=== PATIENT | female | born 1945 | race Caucasian/White ===

== ENCOUNTER 2018-11-01 23:33 | Emergency (ER) | payer MEDICARE, MEDICAID ==
[2018-11-01] MEDS ORDERED: Nitroglycerin 0.4 MG Tab.SL SL ONE (23:42)
[2018-11-02] MEDS ORDERED: Morphine 2 MG/ML Syringe IVPUSH ONE (00:13)
[2018-11-02] MEDS ORDERED: Heparin Sodium 5,000 Units/ML Vial IVPUSH ONE (00:20)
[2018-11-02] MEDS ORDERED: Heparin Sodium/0.45% NaCl 25,000 UNITS/500 ML BAG IV SCH (00:30)
[2018-11-02] MEDS ORDERED: Nitroglycerin/D5W 25 MG/250 ML BOTTLE IV SCH (00:45)
[2018-11-02] MEDS ORDERED: Clopidogrel 75 MG Tab PO ONE (01:25)
--- NOTE | 2018-11-02 02:07 | EDM.PDOC ---
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 No improvement. Denies radiation, of pain, no nausea or vomiting, denied sweating. Has had recent cold sx past 2 weeks. Denies previous ME. Had ablation for tachy arrhythmia in July. Remote hx blood clot in leg with at age 16/ Mid-Sternal Chest Pain Score (Numeric/FACES): 8 - Related Data Allergies Allergy/AdvReac Type Severity Reaction Status Date / Time codeine Allergy Nausea Verified 07/24/14 05:07 gatifloxacin [Gatifloxacin] Allergy Cannot Verified 07/24/14 05:07 Remember Iodinated Contrast- Oral and Allergy Rash Verified 07/24/14 05:07 IV Dye [Iodinated Contrast Media - IV Dye] Penicillins Allergy Cannot Verified 07/24/14 05:07 Remember propoxyphene AdvReac Nausea Verified 07/24/14 05:07 Home Meds: Home Meds Allopurinol 300 mg PO DAILY 06/13/14 [History] Aspirin [Mini Chewable] 81 mg PO DAILY 06/13/14 [History] Atenolol 100 mg PO BID 06/13/14 [History] Ca Carbonate/Vitamin D3/Vit K [Calcium + D Soft Chewable Tab] 1 tab PO DAILY [History] Clorazepate [Clorazepate Dipotassium] 7.5 mg PO BEDTIME 06/13/14 [History] Ferrous Sulfate [Slow Release Iron] 160 mg PO DAILY 06/13/14 [History] Furosemide 40 mg PO DAILY 06/13/14 [History] Hydroxychloroquine Sulfate [Plaquenil] 200 mg PO BID 06/13/14 [History] Levothyroxine 175 mcg PO ACBRK 06/13/14 [History] NIFEdipine [Nifedical XL] 60 mg PO DAILY 06/13/14 [History] Rosuvastatin Calcium [Crestor] 10 mg PO BEDTIME 06/13/14 [History] Triamcinolone Acetonide [Triamcinolone Acetonide 0.1% Crm] 15 gm .XX DAILY 06/13 [History] Valsartan [Diovan] 160 mg PO DAILY 06/13/14 [History] rOPINIRole [Requip XL] 2 mg PO DAILY 06/13/14 [History] traMADol [Ultram] 50 mg PO Q8HR PRN 06/13/14 [History] Lidocaine 5% [Lidoderm 5%] 1 patch TRDERM DAILY PRN 07/24/14 [History] Polyethylene Glycol 3350 [MiraLAX] 1 scoop PO DAILY 07/24/14 [History] Past Medical History Cardiovascular History: Reports: High Cholesterol, Hypertension, Other (See Below) Other Cardiovascular History: Paroxsysmal atrial tachycardia 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) Other LOAN APPROVER History: pelvic relaxation disorder Musculoskeletal History: Reports: Fibromyalgia, RA Neurological History: Reports: Other (See Below) Other Neuro History: restless leg syndrome Endocrine/Metabolic History: Reports: Diabetes, Type II Hematologic History: Reports: Anemia Immunologic History: Reports: Other (See Below) Social & Family History - Family History Family Medical History: Noncontributory - Tobacco Use Smoking Status *Q: Former Smoker Used Tobacco, but Quit: Yes Month/Year Tobacco Last Used: 1993 - Caffeine Use Caffeine Use: Reports: Coffee - Recreational Drug Use Recreational Drug Use: No ED ROS GENERAL - Review of Systems Review Of Systems: See Below Constitutional: Denies: Diaphoresis HEENT: Reports: No Symptoms Respiratory: Reports: Cough. Denies: Wheezing Cardiovascular: Reports: No Symptoms, Edema (no change). Denies: Lightheadedness, Orthopnea, Palpitations, Syncope GI/Abdominal: Reports: No Symptoms : Reports: No Symptoms Musculoskeletal: Reports: Joint Pain (generalized arthritic pain) Skin: Reports: No Symptoms Neurological: Reports: No Symptoms Psychiatric: Reports: Anxiety ED EXAM, GENERAL - Physical Exam Exam: See Below Exam Limited By: Altered Mental Status General Appearance: Alert, Anxious, Mild Distress Eye Exam: Bilateral Eye: EOMI Ears: Normal External Exam, Normal TMs Nose: Normal Inspection Throat/Mouth: Normal Inspection Head: Atraumatic, Normocephalic, Facial Tenderness Neck: Normal Inspection Respiratory/Chest: No Respiratory Distress, Lungs Clear, Normal Breath Sounds. No: Decreased Breath Sounds, Crackles, Rales, Rhonchi Cardiovascular: Normal Peripheral Pulses, Regular Rate, Rhythm, No Murmur, Other (trace) GI/Abdominal: Normal Bowel Sounds, Soft, Non-Tender Extremities: Normal Inspection, Normal Range of Motion Neurological: Alert, Oriented, Normal Cognition, No Motor/Sensory Deficits Psychiatric: Anxious Skin Exam: Warm, Dry Course - Vital Signs Last Recorded V/S: Last Vital Signs Temp 97.9 F 11/02/18 00:03 Pulse 104 H 11/02/18 00:03 Resp 18 11/02/18 00:03 BP 145/73 H 11/02/18 00:03 Pulse Ox 100 11/02/18 00:03 - Orders/Labs/Meds Orders: Active Orders 24 hr Category Date Time Status EKG Documentation Completion [RC] URGENT Care 11/01/18 23:42 Active Labs: Laboratory Tests 11/01/18 11/01/18 11/01/18 Range/Units 23:43 23:43 23:43 WBC 9.7 (5.0-10.0) 10^3/uL RBC 3.49 L (4.2-5.4) 10^6/uL Hgb 10.9 L (12.0-16.0) g/dL Hct 32.5 L (37.0-47.0) % MCV 93.1 (80-100) fL MCH 31.2 (27.0-34.0) pg MCHC 33.5 (33.0-35.0) g/dL Plt Count 196 (150-450) 10^3/uL Neut % (Auto) 57.3 (42.2-75.2) % Lymph % (Auto) 28.4 (20.5-50.1) % [place] % (Auto) 11.1 H (2-8) % Eos % (Auto) 2.7 (1.0-3.0) % Baso % (Auto) 0.5 (0.0-1.0) % PT 10.0 (9.0-12.0) SEC INR 1.0 (0.9-1.2) APTT (22.0-34.0) SEC D-Dimer, Quantitative 1300 H (0-400) ng/mL Sodium 136 (135-145) mmol/L Potassium 4.0 (3.6-5.0) mmol/L Chloride 103 (101-111) mmol/L Carbon Dioxide 21.0 (21.0-31.0) mmol/L Anion Gap 16.0 BUN 34 H D (7-18) mg/dL Creatinine 1.9 H (0.6-1.3) mg/dL Est Cr Clr Drug Dosing 18.38 mL/min Estimated GFR (MDRD) 26 BUN/Creatinine Ratio 17.89 Glucose 158 H (74-105) mg/dL Calcium 9.7 (8.4-10.2) mg/dl Magnesium 1.7 L (1.8-2.5) mg/dL Total Bilirubin 0.6 (0.2-1.0) mg/dL AST 31 (10-42) IU/L ALT 24 (10-60) IU/L Alkaline Phosphatase 48 (42-121) IU/L Creatine Kinase 146 (26-174) IU/L Troponin I 0.10 H* (0.00-0.02) ng/ml Total Protein 6.7 (6.7-8.2) g/dl Albumin 4.4 (3.2-5.5) g/dl Globulin 2.3 Albumin/Globulin Ratio 1.91 11/01/18 Range/Units 23:43 WBC (5.0-10.0) 10^3/uL RBC (4.2-5.4) 10^6/uL Hgb (12.0-16.0) g/dL Hct (37.0-47.0) % MCV (80-100) fL MCH (27.0-34.0) pg MCHC (33.0-35.0) g/dL Plt Count (150-450) 10^3/uL Neut % (Auto) (42.2-75.2) % Lymph % (Auto) (20.5-50.1) % [place] % (Auto) (2-8) % Eos % (Auto) (1.0-3.0) % Baso % (Auto) (0.0-1.0) % PT (9.0-12.0) SEC INR (0.9-1.2) APTT 20.5 L (22.0-34.0) SEC D-Dimer, Quantitative (0-400) ng/mL Sodium (135-145) mmol/L Potassium (3.6-5.0) mmol/L Chloride (101-111) mmol/L Carbon Dioxide (21.0-31.0) mmol/L Anion Gap BUN (7-18) mg/dL Creatinine (0.6-1.3) mg/dL Est Cr Clr Drug Dosing mL/min Estimated GFR (MDRD) BUN/Creatinine Ratio Glucose (74-105) mg/dL Calcium (8.4-10.2) mg/dl Magnesium (1.8-2.5) mg/dL Total Bilirubin (0.2-1.0) mg/dL AST (10-42) IU/L ALT (10-60) IU/L Alkaline Phosphatase (42-121) IU/L Creatine Kinase (26-174) IU/L Troponin I (0.00-0.02) ng/ml Total Protein (6.7-8.2) g/dl Albumin (3.2-5.5) g/dl Globulin Albumin/Globulin Ratio Meds: Medications Discontinued Medications Generic Name Dose Route Start Last Admin Trade Name Freq PRN Reason Stop Dose Admin Clopidogrel Bisulfate 300 mg 11/02/18 01:25 11/02/18 01:34 Plavix PO 11/02/18 01:26 300 mg ONETIME ONE Administration Heparin Sodium (Porcine) 4,000 units 11/02/18 00:20 11/02/18 00:39 Heparin Sodium IVPUSH 11/02/18 00:21 4,000 units .BOLUS ONE Administration Heparin Sodium/Sodium Chloride 25,000 units in 500 mls @ 17.418 mls/hr 00:30 11/02/18 00:40 Heparin 25,000 Units In 1/2 Ns 500 Ml IV 12 units/kg/hr TITRATE LEANDRA 17.418 mls/hr Administration Protocol 12 UNITS/KG/HR Nitroglycerin/Dextrose 25 mg in 250 mls @ 6 mls/hr 11/02/18 00:45 11/02/18 00 :48 Nitroglycerin 25 Mg/D5w 250 Ml IV 10 mcg/min TITRATE LEANDRA 6 mls/hr Administration Protocol 10 MCG/MIN Morphine Sulfate 2 mg 11/02/18 00:13 11/02/18 00:18 Morphine IVPUSH 11/02/18 00:14 2 mg ONETIME ONE Administration Nitroglycerin 0.4 mg 11/01/18 23:42 11/01/18 23:52 Nitrostat SL 11/01/18 23:43 0.4 mg ONETIME ONE Administration - Radiology Interpretation Free Text/Narrative:: CXR: Name: JUAN ALCALA Age: 73Years F Date: 11/01/2018 SSN: -- : 1945 Study: XR CHEST 1 VIEW Requesting Physician: INES VICTOR Images: 1 Addl Studies: Provided Clinical History: Contrast: Contrast Medium: Contrast Amount: Contrast Method: CONFIDENTIALITY STATEMENT This report is intended only for use by the referring physician, and only in accordance with law. If you received this in error, call [phone]. Page 1 of 1 EXAM: XR Chest, 1 View EXAM DATE/TIME: 11/01/2018 11:47 PM CLINICAL HISTORY: 73 years old, female; Pain; Chest pain; Type not specified TECHNIQUE: XR of the chest, 1 view. COMPARISON: CR Chest 2V 08/16/2016 12:39 PM FINDINGS: Lungs: Clear lungs. Pleural space: No pneumothorax. No sizable pleural effusion. Heart/Mediastinum: No cardiomegaly. Bones/joints: Unremarkable. IMPRESSION: Clear lungs. Thank you for allowing us to participate in the care of your patient. Dictated and Authenticated by: Milton Edmondson MD 11/02/2018 12:36 AM Central Time ([place] & [place]) - Re-Assessments/Exams Free Text/Narrative Re-Assessment/Exam: 11/02/18 06:35 Dr Emili Rebollar accepting for further evaluation. Tx via [facility]. Nitro and heparin infusing. VSS. Anxious Departure - Departure Time of Disposition: 02:05 Disposition: DC/Tfer to Acute Hospital 02 Reason for Transfer *Q: Other Condition: Undetermined Clinical Impression: Acute myocardial infarction Qualifiers: Myocardial infarction type: non-ST elevation myocardial infarction Qualified Code(s): I21.4 - Non-ST elevation (NSTEMI) myocardial infarction Referrals: PCP,None [Primary Care Provider] - Forms: ED Department Discharge - My Orders Last 24 Hours: My Active Orders 11/01/18 23:42 EKG Documentation Completion [RC] URGENT - Assessment/Plan Last 24 Hours: My Active Orders 11/01/18 23:42 EKG Documentation Completion [RC] URGENT
== END 2018-11-02 02:07 ==
LOC: DL.ED 23:33
DX: I21.4 Non-ST elevation (NSTEMI) myocardial infarction (principal); E78.00 Pure hypercholesterolemia, unspecified; I10 Essential (primary) hypertension; E11.9 Type 2 diabetes mellitus without complications; Z88.5 Allergy status to narcotic agent; Z88.8 Allergy status to other drugs, medicaments and biological substances; Z88.0 Allergy status to penicillin; Z79.82 Long term (current) use of aspirin; Z79.899 Other long term (current) drug therapy; Z87.891 Personal history of nicotine dependence
CPT/HCPCS: 36415; 71045; 80053; 82550; 83735; 84484; 85025; 85379; 85610; 85730; 93005; 96365; 96368; 96375; 99285; A9270; J1644; J2270; J3490

== ENCOUNTER 2018-11-11 18:50 | Emergency (ER) | payer MEDICARE, MEDICAID ==
--- NOTE | 2018-11-11 19:04 | EDM.PDOC ---
ED HPI GENERAL MEDICAL PROBLEM - General Chief Complaint: Respiratory Problem Stated Complaint: PNEUMONIA Time Seen by Provider: 11/11/18 19:03 Source of Information: Reports: Patient History Limitations: Reports: No Limitations - History of Present Illness INITIAL COMMENTS - FREE TEXT/NARRATIVE: c/o cough SOB since coming home from 5 days ago for stent placement from [place]. - Related Data Allergies Allergy/AdvReac Type Severity Reaction Status Date / Time codeine Allergy Nausea Verified 07/24/14 05:07 gatifloxacin [Gatifloxacin] Allergy Cannot Verified 07/24/14 05:07 Remember Iodinated Contrast- Oral and Allergy Rash Verified 07/24/14 05:07 IV Dye [Iodinated Contrast Media - IV Dye] lorazepam Allergy Nervousness Verified 11/11/18 18:55 Penicillins Allergy Cannot Verified 07/24/14 05:07 Remember tramadol Allergy Hallucinati Verified 11/11/18 18:55 ons propoxyphene AdvReac Nausea Verified 07/24/14 05:07 Home Meds: Home Meds Aspirin [Mini Chewable] 81 mg PO DAILY 06/13/14 [History] Ca Carbonate/Vitamin D3/Vit K [Calcium + D Soft Chewable Tab] 1 tab PO DAILY [History] Clorazepate [Clorazepate Dipotassium] 7.5 mg PO BEDTIME 06/13/14 [History] Hydroxychloroquine Sulfate [Plaquenil] 200 mg PO BID 06/13/14 [History] Levothyroxine 125 mcg PO ACBRK 06/13/14 [History] NIFEdipine [Nifedical XL] 90 mg PO DAILY 06/13/14 [History] Lidocaine 5% [Lidoderm 5%] 1 patch TRDERM DAILY PRN 07/24/14 [History] Polyethylene Glycol 3350 [MiraLAX] 1 scoop PO DAILY PRN 07/24/14 [History] Acetaminophen/HYDROcodone [[place] 325-5 MG] 1 tab PO BID PRN 11/11/18 [History] Clopidogrel [Plavix] 75 mg PO DAILY 11/11/18 [History] Ezetimibe [Zetia] 10 mg PO DAILY 11/11/18 [History] Magnesium 250 mg PO DAILY 11/11/18 [History] Metoprolol Tartrate 200 mg PO BID 11/11/18 [History] Sennosides [Senna] 8.6 mg PO DAILY 11/11/18 [History] Tocilizumab [Actemra] 1 dose IV ASDIRECTED 11/11/18 [History] atorvaSTATin [Lipitor] 20 mg PO BEDTIME 11/11/18 [History] cloNIDine [Catapres] 0.1 mg PO BID 11/11/18 [History] Past Medical History Cardiovascular History: Reports: High Cholesterol, Hypertension, Other (See Below) Other Cardiovascular History: Paroxsysmal atrial tachycardia 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 ED EXAM, GENERAL - Physical Exam Exam: See Below Exam Limited By: No Limitations General Appearance: Alert, WD/WN, Mild Distress, Moderate Distress, Other ( congestion cough) Ears: Hearing Grossly Normal Throat/Mouth: Normal Voice, No Airway Compromise Head: Atraumatic Neck: Non-Tender, Full Range of Motion Respiratory/Chest: No Respiratory Distress, No Accessory Muscle Use, Decreased Breath Sounds, Crackles, Rales, Rhonchi Cardiovascular: Regular Rate, Rhythm GI/Abdominal: Soft, Non-Tender Neurological: Alert, Oriented, Normal Cognition, Normal Gait, No Motor/Sensory Deficits Psychiatric: Normal Affect, Normal Mood Skin Exam: Warm, Dry, Normal Color Lymphatic: No Adenopathy Course - Vital Signs Last Recorded V/S: Last Vital Signs Temp 36.3 C 11/11/18 20:17 Pulse 65 11/11/18 20:17 Resp 18 11/11/18 20:17 BP 148/62 H 11/11/18 20:17 Pulse Ox 87 L 11/11/18 19:02 - Orders/Labs/Meds Orders: Active Orders 24 hr Category Date Time Status EKG Documentation Completion [RC] URGENT Care 11/11/18 18:55 Active RT Aerosol Therapy [RC] ASDIRECTED Care 11/11/18 19:05 Active Chest 1V Frontal [CR] Urgent Exams 11/11/18 19:01 Taken CULTURE BLOOD [BC] Stat Lab 11/11/18 19:10 Received CULTURE BLOOD [BC] Stat Lab 11/11/18 20:27 Ordered Vancomycin 1 gm Med 11/11/18 20:28 Active Sodium Chloride 0.9% [Normal Saline] 250 ml IV ONETIME Medication Orders Vancomycin HCl 1 gm/ Sodium (Chloride) 250 mls @ 167 mls/hr IV ONETIME ONE Stop: 11/11/18 21:57 Labs: Laboratory Tests 11/11/18 11/11/18 11/11/18 Range/Units 19:10 19:10 19:10 WBC 10.7 H (5.0-10.0) 10^3/uL RBC 3.10 L (4.2-5.4) 10^6/uL Hgb 9.5 L (12.0-16.0) g/dL Hct 28.5 L (37.0-47.0) % MCV 91.9 (80-100) fL MCH 30.6 (27.0-34.0) pg MCHC 33.3 (33.0-35.0) g/dL Plt Count 194 (150-450) 10^3/uL Neut % (Auto) 76.9 H (42.2-75.2) % Lymph % (Auto) 5.6 L (20.5-50.1) % [place] % (Auto) 14.6 H (2-8) % Eos % (Auto) 2.5 (1.0-3.0) % Baso % (Auto) 0.4 (0.0-1.0) % Sodium 134 L (135-145) mmol/L Potassium 3.8 (3.6-5.0) mmol/L Chloride 105 (101-111) mmol/L Carbon Dioxide 19.0 L (21.0-31.0) mmol/L Anion Gap 13.8 BUN 22 H (7-18) mg/dL Creatinine 1.2 (0.6-1.3) mg/dL Est Cr Clr Drug Dosing 29.10 mL/min Estimated GFR (MDRD) 44 BUN/Creatinine Ratio 18.33 Glucose 129 H (74-105) mg/dL Lactic Acid 1.1 (0.5-2.2) mmol/L Calcium 8.9 (8.4-10.2) mg/dl Total Bilirubin 0.6 (0.2-1.0) mg/dL AST 30 (10-42) IU/L ALT 25 (10-60) IU/L Alkaline Phosphatase 48 (42-121) IU/L Troponin I 0.24 H* (0.00-0.02) ng/ml B-Natriuretic Peptide 765 H (0-100) pg/ml Total Protein 6.2 L (6.7-8.2) g/dl Albumin 3.8 (3.2-5.5) g/dl Globulin 2.4 Albumin/Globulin Ratio 1.58 Meds: Medications Generic Name Dose Route Start Last Admin Trade Name Freq PRN Reason Stop Dose Admin Vancomycin HCl 1 gm/ Sodium 250 mls @ 167 mls/hr 11/11/18 20:28 Chloride IV 11/11/18 21:57 ONETIME ONE Discontinued Medications Generic Name Dose Route Start Last Admin Trade Name Freq PRN Reason Stop Dose Admin Albuterol/Ipratropium 3 ml 11/11/18 19:05 11/11/18 19:16 Duoneb 3.0-0.5 Mg/3 Ml NEB 11/11/18 19:06 3 ml ONETIME ONE Administration Methylprednisolone Sodium Succinate 125 mg 11/11/18 19:05 11/11/18 19:16 Solu-Medrol IVPUSH 11/11/18 19:06 125 mg ONETIME ONE Administration - Re-Assessments/Exams Free Text/Narrative Re-Assessment/Exam: 11/11/18 20:30 s/p duoneb + solumed = much better Departure - Departure Time of Disposition: 20:31 Disposition: DC/Tfer to Acute Hospital 02 Condition: Fair Clinical Impression: Pneumonia, Elevated troponin I level, Elevated brain natriuretic peptide (BNP) level, History of heart artery stent - Discharge Information Forms: Interfacility Transfer EMTALA - My Orders Last 24 Hours: My Active Orders 11/11/18 18:55 EKG Documentation Completion [RC] URGENT 11/11/18 19:01 Chest 1V Frontal [CR] Urgent 11/11/18 19:05 RT Aerosol Therapy [RC] ASDIRECTED 11/11/18 19:10 CULTURE BLOOD [BC] Stat 11/11/18 20:27 CULTURE BLOOD [BC] Stat 11/11/18 20:28 Vancomycin 1 gm Sodium Chloride 0.9% [Normal Saline] 250 ml IV ONETIME - Assessment/Plan Last 24 Hours: My Active Orders 11/11/18 18:55 EKG Documentation Completion [RC] URGENT 11/11/18 19:01 Chest 1V Frontal [CR] Urgent 11/11/18 19:05 RT Aerosol Therapy [RC] ASDIRECTED 11/11/18 19:10 CULTURE BLOOD [BC] Stat 11/11/18 20:27 CULTURE BLOOD [BC] Stat 11/11/18 20:28 Vancomycin 1 gm Sodium Chloride 0.9% [Normal Saline] 250 ml IV ONETIME
[2018-11-11] MEDS ORDERED: methylPREDNISolone Sodium Succinate 125 MG/2 ML SDV IVPUSH ONE (19:05)
[2018-11-11] MEDS ORDERED: Albuterol/Ipratropium 3.0-0.5 MG/3 ML Neb Soln NEB ONE (19:05)
[2018-11-11 19:36] LABS: ANION GAP 13.8
== END 2018-11-11 21:10 ==
LOC: DL.ED 18:50
DX: J18.9 Pneumonia, unspecified organism (principal); E78.00 Pure hypercholesterolemia, unspecified; I10 Essential (primary) hypertension; E11.9 Type 2 diabetes mellitus without complications; R79.89 Other specified abnormal findings of blood chemistry; Z95.5 Presence of coronary angioplasty implant and graft; Z88.5 Allergy status to narcotic agent; Z88.1 Allergy status to other antibiotic agents; Z88.0 Allergy status to penicillin; Z79.82 Long term (current) use of aspirin; Z79.899 Other long term (current) drug therapy; Z79.01 Long term (current) use of anticoagulants
CPT/HCPCS: 36415; 71045; 80053; 83605; 83880; 84484; 85025; 87040; 93005; 96365; 96375; 99285; J2930; J3370; J7050; 99284; J7620-GY

== ENCOUNTER 2019-11-12 10:52 | Emergency (ER) | payer MEDICARE, MEDICAID ==
[2019-11-12] MEDS ORDERED: Aspirin 81 MG Tab.Chew PO ONE (11:16)
--- NOTE | 2019-11-12 12:21 | EDM.PDOC ---
ED HPI GENERAL MEDICAL PROBLEM - General Chief Complaint: Chest Pain Stated Complaint: POSSIBLE HEART ATTACK Time Seen by Provider: 11/12/19 11:05 Source of Information: Reports: Patient, Family, RN, Other History Limitations: Reports: No Limitations - History of Present Illness INITIAL COMMENTS - FREE TEXT/NARRATIVE: ED per wheelchair with c/o pain across lower neck and upper neck pain with general body aches x 2 days, Improved today from yesterday. Presented to clinic for check this am, EKG and labs, and cervical spine xray done. while in clinic , Released home and Troponin returned elevatedso called at home and told to go to ED. Patient denies chest pain. Pain only in back, No SOB, cough in am. No nausea or vomiting, No known fever. Hx IA with Stent one year ago. RA, enlarged thyroid per hx. Back Pain Score (Numeric/FACES): 4 - Related Data Allergies Allergy/AdvReac Type Severity Reaction Status Date / Time codeine Allergy Nausea Verified 11/12/19 11:11 gatifloxacin [Gatifloxacin] Allergy Cannot Verified 11/12/19 11:11 Remember Iodinated Contrast Media Allergy Rash Verified 11/12/19 11:11 [Iodinated Contrast Media - IV Dye] lorazepam Allergy Nervousness Verified 11/12/19 11:11 Penicillins Allergy Cannot Verified 11/12/19 11:11 Remember tramadol Allergy Hallucinati Verified 11/12/19 11:11 ons propoxyphene AdvReac Nausea Verified 11/12/19 11:11 Home Meds: Home Meds Aspirin [Mini Chewable] 81 mg PO DAILY 06/13/14 [History] Calcium Carb/Vitamin D3/Vit K1 [Calcium + D Soft Chewable Tab] 1 tab PO DAILY [History] Clorazepate [Clorazepate Dipotassium] 7.5 mg PO BEDTIME 06/13/14 [History] Hydroxychloroquine Sulfate [Plaquenil] 200 mg PO BID 06/13/14 [History] Levothyroxine 125 mcg PO ACBRK 06/13/14 [History] NIFEdipine [Nifedical XL] 60 mg PO DAILY 06/13/14 [History] Lidocaine 5% [Lidoderm 5%] 1 patch TRDERM DAILY PRN 07/24/14 [History] Acetaminophen/HYDROcodone [[place] 325-5 MG] 1 tab PO BID PRN 11/11/18 [History] Clopidogrel [Plavix] 75 mg PO DAILY 11/11/18 [History] Ezetimibe [Zetia] 10 mg PO DAILY 11/11/18 [History] Metoprolol Tartrate 200 mg PO BID 11/11/18 [History] Sennosides [Senna] 8.6 mg PO DAILY 11/11/18 [History] Tocilizumab [Actemra] 1 dose IV ASDIRECTED 11/11/18 [History] atorvaSTATin [Lipitor] 20 mg PO BEDTIME 11/11/18 [History] cloNIDine [Catapres] 0.1 mg PO BID 11/11/18 [History] Past Medical History HEENT History: Reports: Impaired Vision Cardiovascular History: Reports: High Cholesterol, Hypertension, Other (See Below) Other Cardiovascular History: Paroxsysmal atrial tachycardia Respiratory History: Reports: Bronchitis, Recurrent Gastrointestinal History: Reports: Cholelithiasis Genitourinary History: Reports: Other (See Below) Other Genitourinary History: "Donut" for bladder ONCOLOGIST History: Reports: Other (See Below) Other ONCOLOGIST History: pelvic relaxation disorder Musculoskeletal History: Reports: Fibromyalgia, RA Neurological History: Reports: Other (See Below) Other Neuro History: restless leg syndrome Psychiatric History: Reports: Anxiety Endocrine/Metabolic History: Reports: Diabetes, Type II Hematologic History: Reports: Anemia Immunologic History: Reports: None, Other (See Below) Dermatologic History: Reports: Other (See Below) Other Dermatologic History: skin - Infectious Disease History Infectious Disease History: Reports: C-Difficile, Measles - Past Surgical History HEENT Surgical History: Reports: Cataract Surgery Cardiovascular Surgical History: Reports: Other (See Below) Other Cardiovascular Surgeries/Procedures: Heart ablasion Respiratory Surgical History: Reports: None GI Surgical History: Reports: Cholecystectomy, Colonoscopy Female Surgical History: Reports: None Endocrine Surgical History: Reports: None Neurological Surgical History: Reports: None Musculoskeletal Surgical History: Reports: None Dermatological Surgical History: Reports: Skin Biopsy Social & Family History - Family History Family Medical History: Noncontributory - Tobacco Use Smoking Status *Q: Never Smoker - Caffeine Use Caffeine Use: Reports: Coffee - Recreational Drug Use Recreational Drug Use: No ED ROS GENERAL - Review of Systems Review Of Systems: Comprehensive ROS is negative, except as noted in HPI. ED EXAM, GENERAL - Physical Exam Exam: See Below Exam Limited By: No Limitations General Appearance: Alert, No Apparent Distress (moving upper extremities without limitiation, stiff lower extremities. Talking full sentences ), Anxious Eye Exam: Bilateral Eye: EOMI, PERRL Ears: Normal External Exam, Normal TMs Nose: Normal Inspection Throat/Mouth: Normal Inspection Head: Atraumatic, Normocephalic Neck: Normal Inspection, Tender Lateral. No: Limited Range of Motion, Tender Midline Respiratory/Chest: No Respiratory Distress, Decreased Breath Sounds (scattered crackles to base clear with deep breathing.) Cardiovascular: Normal Peripheral Pulses, Regular Rate, Rhythm GI/Abdominal: Normal Bowel Sounds, Soft, Non-Tender Extremities: No: Pedal Edema, Increased Warmth Neurological: Alert, Oriented, Normal Cognition Psychiatric: Anxious Skin Exam: Warm, Dry, Intact, Normal Color, No Rash Course - Vital Signs Last Recorded V/S: Last Vital Signs Temp 98 F 11/12/19 11:05 Pulse 59 L 11/12/19 11:05 Resp 17 11/12/19 11:05 BP 168/73 H 11/12/19 11:05 Pulse Ox 99 11/12/19 11:05 - Orders/Labs/Meds Labs: Laboratory Tests 11/12/19 11/12/19 11/12/19 Range/Units 11:04 11:04 11:04 D-Dimer, Quantitative 217 (0-400) ng/mL Creatine Kinase 170 (26-174) IU/L CK-MB (CK-2) 6.90 H (0.4-4.7) ng/mL Troponin I 0.15 H* (0.00-0.02) ng/ml C-Reactive Protein < 0.5 (0.0-1.3) mg/dL B-Natriuretic Peptide 118 H (0-100) pg/ml Meds: Medications Discontinued Medications Generic Name Dose Route Start Last Admin Trade Name Freq PRN Reason Stop Dose Admin Aspirin 324 mg 11/12/19 11:16 11/12/19 11:35 Aspirin PO 11/12/19 11:17 324 mg ONETIME ONE Administration Heparin Sodium (Porcine) 4,000 units 11/12/19 12:50 11/12/19 13:02 Heparin Sodium IVPUSH 11/12/19 12:51 4,000 units .BOLUS ONE Administration Protocol Heparin Sodium/Sodium Chloride 25,000 units in 500 mls @ 16.656 mls/hr 12:53 11/12/19 13:03 Heparin 25,000 Units In 1/2 Ns 500 Ml IV 11/13/19 18:54 12 units/kg/hr TITRATE ONE 16.656 mls/hr Administration Protocol 12 UNITS/KG/HR - Re-Assessments/Exams Free Text/Narrative Re-Assessment/Exam: Tx Sanod via [facility]. NSTEMI. Departure - Departure Time of Disposition: 12:23 Disposition: DC/Tfer to Acute Hospital 02 Reason for Transfer *Q: Other Condition: Undetermined Clinical Impression: NSTEMI (non-ST elevated myocardial infarction), Elevated troponin I level, History of heart artery stent Rheumatoid arthritis Qualifiers: Rheumatoid arthritis location: unspecified site Rheumatoid factor presence: unspecified presence Qualified Code(s): M06.9 - Rheumatoid arthritis, unspecified Referrals: PCP,Unobtain [Primary Care Provider] - Forms: ED Department Discharge Sepsis Event Note - Evaluation Sepsis Screening Result: No Definite Risk - Focused Exam Date Exam was Performed: 11/14/19 Time Exam was Performed: 06:22
[2019-11-12] MEDS ORDERED: Heparin Sodium 5,000 Units/ML Vial IVPUSH ONE (12:50)
[2019-11-12] MEDS ORDERED: Heparin Sodium/0.45% NaCl 25,000 UNITS/500 ML BAG IV ONE (12:53)
== END 2019-11-12 13:15 ==
LOC: DL.ED 10:52
DX: I21.4 Non-ST elevation (NSTEMI) myocardial infarction (principal); R79.89 Other specified abnormal findings of blood chemistry; M06.9 Rheumatoid arthritis, unspecified; E78.00 Pure hypercholesterolemia, unspecified; I10 Essential (primary) hypertension; F41.9 Anxiety disorder, unspecified; E11.9 Type 2 diabetes mellitus without complications; I48.0 Paroxysmal atrial fibrillation; Z79.02 Long term (current) use of antithrombotics/antiplatelets; Z79.899 Other long term (current) drug therapy; Z79.82 Long term (current) use of aspirin; Z86.79 Personal history of other diseases of the circulatory system; Z88.0 Allergy status to penicillin; Z88.5 Allergy status to narcotic agent; Z88.8 Allergy status to other drugs, medicaments and biological substances; Z91.041 Radiographic dye allergy status
CPT/HCPCS: 36415; 71045; 71250; 74176; 82550; 82553; 83880; 84484; 85379; 86140; 87804; 93005; 96374; 99284; 99285; A9270; J1644

== ENCOUNTER 2021-10-27 14:14 | Emergency (ER) | payer MEDICARE, MEDICAID ==
[2021-10-27] MEDS ORDERED: Lidocaine 1% 30 ML SDV INFILT ONE (14:24)
== END 2021-10-27 16:10 | disposition home or self-care (01) ==
LOC: DL.ED 14:14
DX: S71.111A Laceration without foreign body, right thigh, initial encounter (principal); S61.215A Laceration without foreign body of left ring finger without damage to nail, initial encounter; E78.00 Pure hypercholesterolemia, unspecified; I10 Essential (primary) hypertension; E11.9 Type 2 diabetes mellitus without complications; Z90.49 Acquired absence of other specified parts of digestive tract; Z88.5 Allergy status to narcotic agent; Z88.8 Allergy status to other drugs, medicaments and biological substances; Z88.0 Allergy status to penicillin; Z79.82 Long term (current) use of aspirin; Z79.899 Other long term (current) drug therapy; W01.0XXA Fall on same level from slipping, tripping and stumbling without subsequent striking against object, initial encounter
CPT/HCPCS: 12004; 99282-25

== ENCOUNTER 2021-12-08 17:35 | Emergency (ER) | payer MEDICARE, MEDICAID | END 2021-12-08 19:07 | disposition home or self-care (01) | LOC: DL.ED 17:35 | DX: S80.01XA Contusion of right knee, initial encounter (principal); M17.11 Unilateral primary osteoarthritis, right knee; E78.00 Pure hypercholesterolemia, unspecified; I10 Essential (primary) hypertension; E11.9 Type 2 diabetes mellitus without complications; Z88.5 Allergy status to narcotic agent; Z88.1 Allergy status to other antibiotic agents; Z88.0 Allergy status to penicillin; Z91.041 Radiographic dye allergy status; Z79.82 Long term (current) use of aspirin; Z79.02 Long term (current) use of antithrombotics/antiplatelets; Z79.899 Other long term (current) drug therapy; W18.30XA Fall on same level, unspecified, initial encounter | CPT/HCPCS: 73562-RT; 99282; 99283-25 ==

== ENCOUNTER 2022-12-18 18:24 | Emergency (ER) | payer MEDICARE, MEDICAID ==
[2022-12-18] MEDS ORDERED: predniSONE 20 MG Tab PO ONE ×2 (18:25→19:48)
[2022-12-18] MEDS ORDERED: predniSONE 20 MG Tab ONE (20:05)
== END 2022-12-18 20:26 | disposition home or self-care (01) ==
LOC: DL.ED 18:24
DX: M25.571 Pain in right ankle and joints of right foot (principal); M25.572 Pain in left ankle and joints of left foot; E78.00 Pure hypercholesterolemia, unspecified; I10 Essential (primary) hypertension; E11.9 Type 2 diabetes mellitus without complications; M06.9 Rheumatoid arthritis, unspecified; Z88.5 Allergy status to narcotic agent; Z88.8 Allergy status to other drugs, medicaments and biological substances; Z91.041 Radiographic dye allergy status; Z88.0 Allergy status to penicillin; Z79.82 Long term (current) use of aspirin; Z79.02 Long term (current) use of antithrombotics/antiplatelets; Z79.899 Other long term (current) drug therapy
CPT/HCPCS: 73600-50; 99283; 99284; J7512

== ENCOUNTER 2023-01-25 16:12 | Inpatient (IN) | payer MEDICARE, MEDICAID ==
[2023-01-25] MEDS ORDERED: hydrALAZINE 20 MG/ML SDV IVPUSH PRN (16:56)
[2023-01-25] MEDS ORDERED: Metoprolol Tartrate 5 MG/5 ML SDV IVPUSH PRN (16:56)
[2023-01-25] MEDS ORDERED: Albuterol/Ipratropium 3.0-0.5 MG/3 ML Neb Soln NEB PRN (16:57)
[2023-01-25] MEDS ORDERED: Acetaminophen/HYDROcodone 325-5 MG Tab PO PRN (16:57)
[2023-01-25] MEDS ORDERED: HYDROmorphone 0.5 MG/0.5 ML Syringe IVPUSH PRN (16:57)
[2023-01-25] MEDS ORDERED: Sodium Chloride 0.9% 10 ML Syringe FLUSH PRN (16:57)
[2023-01-25] MEDS ORDERED: Ondansetron 4 MG/2 ML SDV IVPUSH PRN (16:57)
[2023-01-25] MEDS ORDERED: Magnesium Hydroxide 400 MG/5 ML Susp 30 ML Cup PO PRN (16:57)
[2023-01-25] MEDS ORDERED: Polyethylene Glycol 3350 Powder 17 GM Packet PO PRN (16:57)
[2023-01-25] MEDS ORDERED: Heparin Sodium 5,000 Units/ML Vial IVPUSH ONE (17:00)
[2023-01-25] MEDS: Heparin Sodium/0.45% NaCl 25,000 UNITS/500 ML BAG IV SCH (17:12)
[2023-01-25] MEDS ORDERED: Clopidogrel 75 MG Tab PO ONE (17:40)
[2023-01-25] MEDS ORDERED: Furosemide 100 MG in Sodium Chloride 0.9% 90 ML IV SCH (17:45)
[2023-01-25] MEDS ORDERED: Potassium Chloride 10 MEQ Tab.ER PO ONE (17:46)
[2023-01-25] MEDS ORDERED: Glucagon,Human Recombinant 1 MG Vial IM PRN (19:47)
[2023-01-25] MEDS ORDERED: 50% Dextrose in Water 50 ML Syringe IVPUSH PRN (19:47)
[2023-01-25] MEDS: Albumin 25% 12.5 GM in Premix Bag 1 BAG IV SCH (20:41)
[2023-01-25] MEDS: Sodium Chloride 0.9% 10 ML Syringe FLUSH SCH (20:58)
[2023-01-25] MEDS ORDERED: Non-Formulary Medication 1 Each (Sennosides [Senna] 8.6 MG Tablet) PO PRN (21:07)
[2023-01-25] MEDS: CLORAZEPATE 7.5 MG PO SCH (22:09)
[2023-01-26] MEDS ORDERED: Heparin Sodium 5,000 Units/ML Vial ONE (00:11)
[2023-01-26] MEDS ORDERED: Heparin Sodium 5,000 Units/ML Vial IVPUSH ONE ×2 (00:21→07:33)
[2023-01-26] MEDS: Albumin 25% 12.5 GM in Premix Bag 1 BAG IV SCH ×3 (02:26→14:29)
[2023-01-26] MEDS: Levothyroxine 150 MCG Tab PO SCH (05:29)
[2023-01-26 06:25] LABS: ANION GAP 10.6 mEq/L (7-13)
[2023-01-26] MEDS ORDERED: Albumin 25% 50 ML ONE ×2 (07:39→14:05)
[2023-01-26] MEDS: hydrALAZINE 25 MG Tab PO SCH ×2 (08:09→21:03)
[2023-01-26] MEDS: Metoprolol Tartrate 50 MG Tab PO SCH ×2 (08:10→21:01)
[2023-01-26] MEDS: Ezetimibe 10 MG Tab PO SCH (08:10)
[2023-01-26] MEDS: Potassium Chloride 10 MEQ Tab.ER PO SCH (08:10)
[2023-01-26] MEDS: Hydroxychloroquine 200 MG Tab PO SCH ×2 (08:11→21:04)
[2023-01-26] MEDS: Sodium Chloride 0.9% 10 ML Syringe FLUSH SCH ×2 (08:11→21:05)
[2023-01-26] MEDS: amLODIPine 5 MG Tab PO SCH (08:11)
[2023-01-26] MEDS: Insulin Lispro 100 Units/ML 3 ML Vial SUBCUT SCH ×3 (08:22→17:21)
[2023-01-26] MEDS ORDERED: Aspirin 81 MG Tab.Chew PO SCH (09:00)
[2023-01-26] MEDS ORDERED: Clopidogrel 75 MG Tab PO SCH (09:00)
[2023-01-26] MEDS ORDERED: Magnesium Sulfate/Water 50 ML ONE ×2 (09:10→15:34)
[2023-01-26] MEDS ORDERED: Magnesium Sulfate/Water 2 GM in Premix Bag 1 BAG IV ONE ×2 (09:30→15:30)
[2023-01-26] MEDS: Acetaminophen 325 MG Tab PO PRN (17:50)
[2023-01-26] MEDS ORDERED: Albumin 25% 12.5 GM in Premix Bag 1 BAG IV SCH (20:00)
[2023-01-26 20:59] LABS: ANION GAP 12.2 mEq/L (7-13)
[2023-01-26] MEDS ORDERED: CLORAZEPATE 7.5 MG PO SCH (21:00)
[2023-01-26] MEDS: atorvaSTATin 20 MG Tab PO SCH (21:03)
[2023-01-26] MEDS: CLORAZEPATE 7.5 MG PO SCH (21:15)
[2023-01-26] MEDS: Heparin Sodium/0.45% NaCl 25,000 UNITS/500 ML BAG IV SCH (23:17)
[2023-01-27] MEDS: Acetaminophen 325 MG Tab PO PRN (03:59)
[2023-01-27] MEDS: Pantoprazole 40 MG Tab.CR PO SCH (05:44)
[2023-01-27] MEDS: Levothyroxine 150 MCG Tab PO SCH (05:44)
[2023-01-27] MEDS: Furosemide 20 MG Tab PO SCH ×3 (06:16→13:38)
[2023-01-27 07:42] LABS: ANION GAP 11.2 mEq/L (7-13)
[2023-01-27] MEDS: Hydroxychloroquine 200 MG Tab PO SCH ×2 (08:42→21:35)
[2023-01-27] MEDS: Ezetimibe 10 MG Tab PO SCH (08:42)
[2023-01-27] MEDS: amLODIPine 5 MG Tab PO SCH (08:43)
[2023-01-27] MEDS: Potassium Chloride 10 MEQ Tab.ER PO SCH (08:43)
[2023-01-27] MEDS: Metoprolol Tartrate 50 MG Tab PO SCH ×2 (08:44→21:34)
[2023-01-27] MEDS: hydrALAZINE 25 MG Tab PO SCH ×2 (08:44→21:35)
[2023-01-27] MEDS ORDERED: Lisinopril 10 MG Tab PO SCH (09:00)
[2023-01-27] MEDS: Insulin Lispro 100 Units/ML 3 ML Vial SUBCUT SCH ×3 (10:30→18:00)
[2023-01-27] MEDS: Sodium Chloride 0.9% 10 ML Syringe FLUSH SCH ×2 (10:31→21:35)
[2023-01-27] MEDS ORDERED: predniSONE 10 MG Tab PO ONE (12:30)
[2023-01-27] MEDS: Capsaicin 0.025% Crm 60 GM Tube TOP PRN ×2 (13:38→21:42)
[2023-01-27] MEDS: CLORAZEPATE 7.5 MG PO SCH (20:12)
[2023-01-27] MEDS ORDERED: Ziprasidone Mesylate 20 MG Vial IM PRN (21:15)
[2023-01-27] MEDS: atorvaSTATin 20 MG Tab PO SCH (21:35)
[2023-01-28 06:11] LABS: ANION GAP 13.1 mEq/L (7-13)
[2023-01-28] MEDS: Pantoprazole 40 MG Tab.CR PO SCH (06:24)
[2023-01-28] MEDS: Levothyroxine 150 MCG Tab PO SCH (06:24)
[2023-01-28] MEDS ORDERED: Sodium Chloride 0.9% 1,000 ML IV SCH (08:00)
[2023-01-28] MEDS ORDERED: predniSONE 20 MG Tab PO SCH (12:00)
== END 2023-01-28 09:45 | disposition left against medical advice (07) | DRG 280 ==
LOC: DL.MS 16:12
PROVIDERS: ADMIT Internal Medicine; ATTEND Internal Medicine
DX: I13.0 Hypertensive heart and chronic kidney disease with heart failure and stage 1 through stage 4 chronic kidney disease, or unspecified chronic kidney disease (principal); I50.33 Acute on chronic diastolic (congestive) heart failure; I21.4 Non-ST elevation (NSTEMI) myocardial infarction; J90 Pleural effusion, not elsewhere classified; C34.90 Malignant neoplasm of unspecified part of unspecified bronchus or lung; E87.6 Hypokalemia; E11.65 Type 2 diabetes mellitus with hyperglycemia; E11.22 Type 2 diabetes mellitus with diabetic chronic kidney disease; E55.9 Vitamin D deficiency, unspecified; M54.9 Dorsalgia, unspecified; G89.29 Other chronic pain; M10.9 Gout, unspecified; E03.9 Hypothyroidism, unspecified; E21.3 Hyperparathyroidism, unspecified; E78.5 Hyperlipidemia, unspecified; N18.32 Chronic kidney disease, stage 3b; E78.00 Pure hypercholesterolemia, unspecified; E88.09 Other disorders of plasma-protein metabolism, not elsewhere classified; G25.81 Restless legs syndrome; D64.9 Anemia, unspecified; Z95.5 Presence of coronary angioplasty implant and graft; I25.2 Old myocardial infarction; Z79.82 Long term (current) use of aspirin; Z79.890 Hormone replacement therapy; Z79.899 Other long term (current) drug therapy; Z88.5 Allergy status to narcotic agent; Z90.49 Acquired absence of other specified parts of digestive tract
CPT/HCPCS: 36415; 71045; 73600-LT; 80048; 80053; 80061; 81001; 82040; 82947; 83735; 83880; 84439; 84443; 84484; 85025; 85730; 87086; 93005; 93970; A9270-GY; J0360; J1644; J1815-GY; J1940; J3475; J3486; J3490; J7512; J7620-GY; P9047

== ENCOUNTER 2023-05-03 22:27 | Emergency (ER) | payer MEDICAID, MEDICARE ==
[2023-05-03] MEDS ORDERED: Sodium Chloride 0.9% 10 ML Syringe FLUSH PRN (22:35)
[2023-05-03] MEDS ORDERED: fentaNYL 100 MCG/2 ML SDV IVPUSH ONE (22:46)
[2023-05-03 23:02] LABS: BASOPHILS PERCENT AUTO 0.1 % (0.0-1.0); EOSINOPHILS PERCENT AUTO 0.1 % (1.0-3.0); HEMATOCRIT 32.3 % (37.0-47.0); HEMOGLOBIN 10.5 g/dL (12.0-16.0); LYMPHOCYTES PERCENT AUTO 4.2 % (20.5-50.1); MEAN CORPUSCULAR HEMOGLOBIN 28.4 pg (27.0-34.0); MEAN CORPUSCULAR HGB CONC 32.5 g/dL (33.0-35.0); MEAN CORPUSCULAR VOLUME 87.3 fL (80-100); MONOCYTES PERCENT AUTO 13.7 % (2-8); NEUTROPHILS PERCENT AUTO 81.9 % (42.2-75.2); PLATELET COUNT,PLT 218 10^3/uL (150-450); WHITE BLOOD CELL COUNT,WBC 14.3 10^3/uL (5.0-10.0)
[2023-05-03] MEDS ORDERED: Sodium Chloride 0.9% 1,000 ML IV ONE (23:04)
[2023-05-03] MEDS ORDERED: Ondansetron 4 MG/2 ML SDV IVPUSH ONE (23:04)
[2023-05-03 23:32] LABS: A/G RATIO 1.2; ALBUMIN 3.4 g/dL (3.4-5.0); ALKALINE PHOSPHATASE 142 U/L (46-116); ANION GAP 22.7 mEq/L (7-13); BLOOD UREA NITROGEN,BUN 76 mg/dL (7-18); BUN/CREATININE RATIO 20.8 (No establ ref range); CALCIUM 9.6 mg/dL (8.5-10.1); CARBON DIOXIDE,CO2 20 mmol/L (21-32); CHLORIDE,CL 102 mmol/L (98-107); CREATININE 3.66 mg/dL (0.55-1.02); EST CRCL DRUG DOSING (CG) 8.81 mL/min; GLUCOSE RANDOM 83 mg/dL (70-99); LIPASE 22 U/L (73-393); POTASSIUM,K 5.7 mmol/L (3.5-5.1); PROTEIN TOTAL,TP 6.2 g/dL (6.4-8.2); SODIUM,NA 139 mmol/L (136-145)
[2023-05-03 23:34] LABS: ALANINE AMINOTRANSFERASE,ALT > 1000 U/L (14-59); ESTIMATED GFR 12 mL/min (>=60)
[2023-05-03 23:35] LABS: ASPARTATE AMNIOTRANSFERASE,AST > 1000 U/L (15-37)
[2023-05-04] MEDS ORDERED: Glucagon,Human Recombinant 1 MG Vial IM PRN (00:14)
[2023-05-04] MEDS ORDERED: Aspirin 81 MG Tab.Chew PO ONE (00:14)
[2023-05-04] MEDS ORDERED: Insulin Regular, Human 100 Units/ML 3 ML Vial IV ONE (00:14)
[2023-05-04] MEDS ORDERED: 50% Dextrose in Water 50 ML Syringe IVPUSH ONE (00:14)
[2023-05-04] MEDS ORDERED: Clopidogrel 75 MG Tab PO ONE (00:19)
== END 2023-05-04 02:25 ==
LOC: DL.ED 22:27
DX: I21.4 Non-ST elevation (NSTEMI) myocardial infarction (principal); R53.1 Weakness; E87.5 Hyperkalemia; R10.84 Generalized abdominal pain; I13.0 Hypertensive heart and chronic kidney disease with heart failure and stage 1 through stage 4 chronic kidney disease, or unspecified chronic kidney disease; E11.22 Type 2 diabetes mellitus with diabetic chronic kidney disease; N18.9 Chronic kidney disease, unspecified; I50.9 Heart failure, unspecified; E78.00 Pure hypercholesterolemia, unspecified; Z79.82 Long term (current) use of aspirin; Z79.899 Other long term (current) drug therapy; Z88.5 Allergy status to narcotic agent; Z88.1 Allergy status to other antibiotic agents; Z91.041 Radiographic dye allergy status
CPT/HCPCS: 36415; 70450; 71045; 74176; 80053; 82947; 83690; 84484; 85025; 93005; 96361; 96374; 99291; 99292; A9270; J1815; J7030; J3490

== ENCOUNTER 2023-05-31 06:48 | Inpatient (IN) | payer MEDICARE ==
[2023-05-31] MEDS ORDERED: Ondansetron 4 MG Tab.DIS PO ONE (07:14)
[2023-05-31] MEDS ORDERED: Lactated Ringers 500 ML IV SCH (07:15)
[2023-05-31 07:30] LABS: BASOPHILS PERCENT AUTO 0.2 % (0.0-1.0); EOSINOPHILS PERCENT AUTO 0.4 % (1.0-3.0); HEMATOCRIT 28.8 % (37.0-47.0); HEMOGLOBIN 9.3 g/dL (12.0-16.0); LYMPHOCYTES PERCENT AUTO 4.4 % (20.5-50.1); MEAN CORPUSCULAR HEMOGLOBIN 28.5 pg (27.0-34.0); MEAN CORPUSCULAR HGB CONC 32.3 g/dL (33.0-35.0); MEAN CORPUSCULAR VOLUME 88.3 fL (80-100); MONOCYTES PERCENT AUTO 11.5 % (2-8); NEUTROPHILS PERCENT AUTO 83.5 % (42.2-75.2); PLATELET COUNT,PLT 184 10^3/uL (150-450); RED BLOOD CELL COUNT 3.26 10^6/uL (4.2-5.4); WHITE BLOOD CELL COUNT,WBC 8.2 10^3/uL (5.0-10.0)
[2023-05-31 08:00] LABS: A/G RATIO 0.83; BILIRUBIN TOTAL 0.7 mg/dL (0.2-1.0); BUN/CREATININE RATIO 23.3 (No establ ref range); CALCIUM 9.5 mg/dL (8.5-10.1); CREATININE 2.92 mg/dL (0.55-1.02); EST CRCL DRUG DOSING (CG) 10.23 mL/min; PROTEIN TOTAL,TP 6.6 g/dL (6.4-8.2)
[2023-05-31 08:18] LABS: APPEARANCE,URINE CLEAR (CLEAR); BILIRUBIN,URINE SMALL (NEGATIVE); COLOR,URINE DARK YELLOW (YELLOW); GLUCOSE,URINE NEGATIVE (NEGATIVE); KETONES,URINE NEGATIVE (NEGATIVE); LEUKOCYTE ESTERASE,URINE NEGATIVE (NEGATIVE); NITRITE,URINE NEGATIVE (NEGATIVE); OCCULT BLOOD,URINE NEGATIVE (NEGATIVE); PROTEIN,URINE 100 (NEGATIVE); UROBILINOGEN,URINE 0.2 mg/dL (0.2-1.0)
[2023-05-31 08:33] LABS: AMORPHOUS SEDIMENT,URINE MODERATE /HPF (NOT SEEN); BACTERIA,URINE RARE /HPF (0-FEW/HPF); EPITHELIAL CELLS,URINE MODERATE /HPF (NOT SEEN); MUCUS,URINE FEW /LPF (NOT SEEN); RBC,URINE 0-5 /HPF (0-5)
[2023-05-31] MEDS ORDERED: Ondansetron 4 MG/2 ML SDV IVPUSH PRN (11:55)
[2023-05-31] MEDS ORDERED: Albuterol/Ipratropium 3.0-0.5 MG/3 ML Neb Soln NEB PRN (11:55)
[2023-05-31] MEDS ORDERED: Acetaminophen 325 MG Tab PO PRN (11:55)
[2023-05-31] MEDS ORDERED: HYDROmorphone 0.5 MG/0.5 ML Syringe IVPUSH PRN (11:55)
[2023-05-31] MEDS ORDERED: traMADol 50 MG Tab PO PRN (11:59)
[2023-05-31] MEDS ORDERED: Glucagon,Human Recombinant 1 MG Vial IM PRN (12:03)
[2023-05-31] MEDS ORDERED: 50% Dextrose in Water 50 ML Syringe IVPUSH PRN (12:03)
[2023-05-31] MEDS ORDERED: MVI, Adult with Vitamin K 10 ML, Folic Acid 1 MG, Thiamine 100 MG in Lactated Ringers 1... IV SCH ×4 (12:04)
[2023-05-31] MEDS ORDERED: Sodium Chloride 0.9% 10 ML Syringe FLUSH PRN (13:53)
[2023-05-31] MEDS: Insulin Lispro 100 Units/ML 3 ML Vial SUBCUT SCH (16:00)
[2023-05-31] MEDS ORDERED: Non-Formulary Medication 1 Each (Sennosides [Senna] 8.6 MG Tablet) PO PRN (16:08)
[2023-05-31] MEDS ORDERED: Menthol 10%/Methyl Salicylate 15% 85 GM Tube TOP PRN (16:08)
[2023-05-31] MEDS ORDERED: Acetaminophen/HYDROcodone 325-5 MG Tab PO PRN (16:08)
[2023-05-31] MEDS ORDERED: Loperamide 2 MG Cap PO PRN (16:15)
[2023-05-31] MEDS ORDERED: Melatonin 3 MG Tab PO PRN (17:43)
[2023-05-31] MEDS: atorvaSTATin 20 MG Tab PO SCH (20:32)
[2023-05-31] MEDS: Hydroxychloroquine 200 MG Tab PO SCH (20:34)
[2023-05-31] MEDS ORDERED: Metoprolol Tartrate 50 MG Tab PO SCH (21:00)
[2023-05-31] MEDS ORDERED: Lactated Ringers 1,500 ML IV ONE (23:36)
[2023-05-31] MEDS ORDERED: Midodrine 5 MG Tab PO PRN (23:37)
[2023-06-01] MEDS ORDERED: Heparin Sodium 5,000 Units/ML Vial IVPUSH ONE ×3 (00:18→15:53)
[2023-06-01] MEDS: Heparin Sodium/0.45% NaCl 25,000 UNITS/500 ML BAG IV SCH (00:43)
[2023-06-01] MEDS ORDERED: Atropine 0.1 MG/ML 10 ML Syringe IVPUSH ONE ×3 (00:57→15:35)
[2023-06-01] MEDS ORDERED: Atropine 0.1 MG/ML 10 ML Syringe ONE (01:02)
[2023-06-01 05:48] LABS: BASOPHILS PERCENT AUTO 0.1 % (0.0-1.0); HEMATOCRIT 26.8 % (37.0-47.0); HEMOGLOBIN 8.6 g/dL (12.0-16.0); MEAN CORPUSCULAR HEMOGLOBIN 28.7 pg (27.0-34.0); MEAN CORPUSCULAR HGB CONC 32.1 g/dL (33.0-35.0); MEAN CORPUSCULAR VOLUME 89.3 fL (80-100); MONOCYTES PERCENT AUTO 9.1 % (2-8); NEUTROPHILS PERCENT AUTO 85.8 % (42.2-75.2); PLATELET COUNT,PLT 175 10^3/uL (150-450)
[2023-06-01 06:08] LABS: CHOLESTEROL HDL 40 mg/dL (40-59); CHOLESTEROL LDL CALCULATED 34 mg/dL (0-100); CHOLESTEROL TOTAL 84 mg/dL (0-199); TRIGLYCERIDES 49 mg/dL (0-149)
[2023-06-01 06:10] LABS: ALBUMIN 2.5 g/dL (3.4-5.0); ANION GAP 18.2 mEq/L (7-13); BILIRUBIN TOTAL 0.5 mg/dL (0.2-1.0); BUN/CREATININE RATIO 22.1 (No establ ref range); C-REACTIVE PROTEIN 3.6 mg/dL (0.0-0.9); CALCIUM 8.6 mg/dL (8.5-10.1); CREATININE 2.9 mg/dL (0.55-1.02); EST CRCL DRUG DOSING (CG) 11.11 mL/min; MAGNESIUM 1.7 mg/dL (1.8-2.4); POTASSIUM,K 4.2 mmol/L (3.5-5.1); PROTEIN TOTAL,TP 5.3 g/dL (6.4-8.2)
[2023-06-01 06:14] LABS: A/G RATIO 0.89
[2023-06-01] MEDS: Insulin Lispro 100 Units/ML 3 ML Vial SUBCUT SCH ×3 (08:36→17:08)
[2023-06-01] MEDS: Hydroxychloroquine 200 MG Tab PO SCH ×2 (08:42→21:01)
[2023-06-01] MEDS: Aspirin 81 MG Tab.EC PO SCH (08:42)
[2023-06-01] MEDS: Famotidine 20 MG Tab PO SCH (08:42)
[2023-06-01] MEDS: amLODIPine 5 MG Tab PO SCH (08:43)
[2023-06-01] MEDS: Levothyroxine 50 MCG Tab PO SCH (08:44)
[2023-06-01] MEDS ORDERED: Metoprolol Tartrate 50 MG Tab PO SCH (09:00)
[2023-06-01] MEDS ORDERED: Magnesium Sulfate/Water 2 GM in Premix Bag 1 BAG IV ONE (09:20)
[2023-06-01] MEDS ORDERED: Atropine 0.4 MG/ML SDV IVPUSH STA (15:51)
[2023-06-01] MEDS ORDERED: Dextrose 5%-0.9% NaCl 1,000 ML IV SCH (18:30)
[2023-06-01] MEDS ORDERED: Nystatin Topical Powder 30 GM Bottle TOP PRN (18:47)
[2023-06-01] MEDS: atorvaSTATin 20 MG Tab PO SCH (21:01)
[2023-06-01] MEDS ORDERED: Heparin Sodium 5,000 Units/ML Vial IVPUSH STA (23:28)
[2023-06-02 03:43] LABS: ALBUMIN 2.6 g/dL (3.4-5.0); ANION GAP 19.2 mEq/L (7-13); BILIRUBIN TOTAL 0.3 mg/dL (0.2-1.0); BUN/CREATININE RATIO 19.7 (No establ ref range); C-REACTIVE PROTEIN 3.2 mg/dL (0.0-0.9); CALCIUM 8.4 mg/dL (8.5-10.1); CREATININE 3.35 mg/dL (0.55-1.02); EST CRCL DRUG DOSING (CG) 9.62 mL/min; MAGNESIUM 2.3 mg/dL (1.8-2.4); POTASSIUM,K 4.2 mmol/L (3.5-5.1); PROTEIN TOTAL,TP 5.5 g/dL (6.4-8.2)
[2023-06-02 03:46] LABS: A/G RATIO 0.9
[2023-06-02] MEDS ORDERED: Sodium Chloride 0.9% 500 ML IV SCH (08:15)
[2023-06-02] MEDS: amLODIPine 5 MG Tab PO SCH (09:26)
[2023-06-02] MEDS: Famotidine 20 MG Tab PO SCH (09:35)
[2023-06-02] MEDS: Aspirin 81 MG Tab.EC PO SCH (09:35)
[2023-06-02] MEDS: Levothyroxine 50 MCG Tab PO SCH (09:36)
[2023-06-02] MEDS: Insulin Lispro 100 Units/ML 3 ML Vial SUBCUT SCH ×3 (09:38→18:52)
[2023-06-02] MEDS ORDERED: Heparin Sodium 5,000 Units/ML Vial IVPUSH ONE (10:12)
[2023-06-02] MEDS: Heparin Sodium/0.45% NaCl 25,000 UNITS/500 ML BAG IV SCH (12:04)
[2023-06-02] MEDS ORDERED: LORazepam 2 MG/ML SDV IVPUSH PRN (20:05)
[2023-06-02] MEDS ORDERED: Scopolamine 1.5 MG Transdermal Patch TOP ONE (20:05)
[2023-06-02] MEDS: Morphine 2 MG/ML SYRINGE IVPUSH PRN (20:21)
[2023-06-02] MEDS: [UNRECOGNIZED DRUG - REMARK] TRDERM SCH (20:21)
[2023-06-02] MEDS: CLORAZEPATE 7.5 MG PO SCH (20:22)
[2023-06-02] MEDS: Nystatin Topical Powder 30 GM Bottle TOP PRN (21:24)
[2023-06-03] MEDS: Morphine 2 MG/ML SYRINGE IVPUSH PRN ×2 (05:17→17:09)
[2023-06-03] MEDS: CLORAZEPATE 7.5 MG PO SCH (08:25)
[2023-06-04] MEDS: [UNRECOGNIZED DRUG - REMARK] TRDERM SCH ×2 (01:37→22:45)
[2023-06-04] MEDS: Morphine 2 MG/ML SYRINGE IVPUSH PRN ×2 (03:23→07:12)
[2023-06-04] MEDS ORDERED: LORazepam 1 MG Tab PO PRN (07:43)
[2023-06-04] MEDS: Morphine 10 MG/0.5 ML Oral Syringe SL PRN ×3 (15:03→23:24)
[2023-06-04] MEDS: LORazepam 1 MG Tab PO PRN ×2 (17:53→22:20)
[2023-06-05] MEDS: LORazepam 1 MG Tab PO PRN ×7 (02:36→19:52)
[2023-06-05] MEDS: Morphine 10 MG/0.5 ML Oral Syringe SL PRN ×6 (04:03→22:39)
[2023-06-05] MEDS ORDERED: Scopolamine 1.5 MG Transdermal Patch TOP ONE (08:36)
[2023-06-05] MEDS: Atropine 1% Ophth Soln 5 ML Bottle SL PRN ×4 (11:30→22:28)
[2023-06-05] MEDS: [UNRECOGNIZED DRUG - REMARK] TRDERM SCH (20:11)
[2023-06-05] MEDS: Nystatin Topical Powder 30 GM Bottle TOP PRN (20:11)
== END 2023-06-05 23:37 | disposition expired ==
LOC: DL.ED 06:48 → DL.MS 10:45 → INTOOBSV 10:45 → UNDOADMOB 10:45 → OBSVTOIN 10:45 → DL.MS 06-01 00:16
PROVIDERS: ADMIT Internal Medicine; ATTEND Internal Medicine
DX: R53.1 Weakness (principal); I21.4 Non-ST elevation (NSTEMI) myocardial infarction; G93.41 Metabolic encephalopathy; E87.20 Acidosis, unspecified; R11.0 Nausea; I13.0 Hypertensive heart and chronic kidney disease with heart failure and stage 1 through stage 4 chronic kidney disease, or unspecified chronic kidney disease; N18.4 Chronic kidney disease, stage 4 (severe); I50.32 Chronic diastolic (congestive) heart failure; C34.90 Malignant neoplasm of unspecified part of unspecified bronchus or lung; Z51.5 Encounter for palliative care; I47.1 Supraventricular tachycardia; R00.1 Bradycardia, unspecified; D64.9 Anemia, unspecified; E88.09 Other disorders of plasma-protein metabolism, not elsewhere classified; E78.5 Hyperlipidemia, unspecified; R19.7 Diarrhea, unspecified; M79.7 Fibromyalgia; E11.65 Type 2 diabetes mellitus with hyperglycemia; E83.52 Hypercalcemia; I95.9 Hypotension, unspecified; Z95.5 Presence of coronary angioplasty implant and graft; Z85.118 Personal history of other malignant neoplasm of bronchus and lung; R74.8 Abnormal levels of other serum enzymes; E83.42 Hypomagnesemia; I25.2 Old myocardial infarction; E11.22 Type 2 diabetes mellitus with diabetic chronic kidney disease; D63.8 Anemia in other chronic diseases classified elsewhere; E55.9 Vitamin D deficiency, unspecified; M54.9 Dorsalgia, unspecified; G89.29 Other chronic pain; M10.9 Gout, unspecified; E03.9 Hypothyroidism, unspecified; E21.3 Hyperparathyroidism, unspecified; M06.9 Rheumatoid arthritis, unspecified; E83.9 Disorder of mineral metabolism, unspecified; M89.9 Disorder of bone, unspecified; M40.204 Unspecified kyphosis, thoracic region; G25.81 Restless legs syndrome; H54.7 Unspecified visual loss; E78.00 Pure hypercholesterolemia, unspecified; F41.9 Anxiety disorder, unspecified; L30.4 Erythema intertrigo; M47.812 Spondylosis without myelopathy or radiculopathy, cervical region; Z88.1 Allergy status to other antibiotic agents; Z91.041 Radiographic dye allergy status; Z88.0 Allergy status to penicillin; Z88.5 Allergy status to narcotic agent; Z88.6 Allergy status to analgesic agent; Z88.8 Allergy status to other drugs, medicaments and biological substances; Z98.49 Cataract extraction status, unspecified eye; Z90.49 Acquired absence of other specified parts of digestive tract; Z79.82 Long term (current) use of aspirin; Z79.890 Hormone replacement therapy; Z79.899 Other long term (current) drug therapy; Z87.891 Personal history of nicotine dependence
CPT/HCPCS: 36415; 71045; 80053; 81001; 83605; 83880; 84484; 85025; 93005; 93010; 96361; 96365; 96366; 96367; 96375; 99284; 99285; A9270; J2405; J7120; 70450; 80061; 82947; 83735; 85730; 86140; 96360; J0461; J1644; J2060; J2270; J3411; J3475; J3490; J7040; J7042